=== PATIENT | male | born 1955 | race Caucasian/White ===

== ENCOUNTER 2017-03-17 05:45 | Inpatient (IN) | payer BC, OTHER ==
--- NOTE | 2017-03-16 18:26 | GHP ---
[f rep st] PREOP HISTORY AND PHYSICAL ADMISSION DIAGNOSIS: Adenocarcinoma of the prostate. HISTORY OF PRESENT ILLNESS: This is a 61-year-old gentleman who has had adenocarcinoma of the prostate and is admitted for radical retropubic prostatectomy, bilateral lymph node dissection. He has had a Marana 3 + 3 = 6 , World Health Organization, group 1, prostate cancer. His pathology revealed that he had 2 cores that were 60% Marana 6 in one at the left mid prostate. At the left apex, 70% of a core. There was no reported perineural invasion. He had a PSA value that was 4.0 as of 12/17/2016. His prostate was 16.2 g on ultrasound and he had a PSA density of 0.25. On consultation, we discussed the various options of therapy and those therapy options would be active surveillance/watchful waiting, external beam radiation, IMRT, brachytherapy, CyberKnife, or surgery. At the present time, he has elected to undergo radical retropubic prostatectomy, robotically assisted. He does not have a family history of prostate cancer. PAST MEDICAL HISTORY: Noted for hypertension. PAST SURGERIES: Appendicitis. MEDICATIONS: Lisinopril and vitamin D3. ALLERGIES: No known drug allergies. SOCIAL HISTORY: Nonsmoker. REVIEW OF SYSTEMS: Negative cardiac, respiratory, GI, and endocrine. PHYSICAL EXAMINATION: VITAL SIGNS: In the offices, 136/78 blood pressure, heart rate 94, respirations 16, temp 97.9, and BMI was 28.17. O2 saturation on room air was 95%. Vital signs stable. CHEST: Clear. HEART: Regular rate and rhythm. ABDOMEN: Normal. No organomegaly, rebound, or guarding. EXTREMITIES: Lower extremities were normal. GENITOURINARY: His prostate was initially felt to be normal. The prostate ultrasound exam showed possibly a near-apical lesion at the midline on the sagittal views and the capsule appeared to be intact. PLAN: At the present time, he is admitted for the above procedure. Written and verbal consent were obtained. Bowel prep and preop have been addressed and we have tried to answer all of his questions in an appropriate way. /[id number]/MODL MTDD
--- NOTE | 2017-03-17 06:43 | PDHPUP ---
History & Physical Update H&P update statement: This history and physical update is based on an assessment of the patient which was completed after admission or registration (within 24 hours), but prior to the surgery/procedure. H&P update: H&P reviewed & patient examined, no change in patient's condition since H&P completed
[2017-03-17] MEDS ORDERED: ceFAZolin 2 GM/SWFI 2 GM/20 ML SYR IVP ONE (06:44)
[2017-03-17] MEDS ORDERED: MIDAZOLAM 2 MG/2 ML VIAL IVP ONE (07:00)
--- NOTE | 2017-03-17 07:02 | PDANEPAE ---
ANE Past Medical History - Cardiovascular History Hx Hypertension: Yes Hx Arrhythmias: No Hx Chest Pain: No Hx Coronary Artery / Peripheral Vascular Disease: No Hx CHF / Valvular Disease: No Hx Palpitations: No - Pulmonary History Hx COPD: No Hx Asthma/Reactive Airway Disease: No Hx Recent Upper Respiratory Infection: No Hx Oxygen in Use at Home: No Hx Sleep Apnea: No Sleep Apnea Screening Result - Last Documented: Negative - Neurologic History Hx Cerebrovascular Accident: No Hx Seizures: No Hx Dementia: No - Endocrine History Hx Diabetes: No - Renal History Hx Renal Disorders: No - Liver History Hx Hepatic Disorders: No - Neurological & Psychiatric Hx Hx Neurological and Psychiatric Disorders: No - Cancer History Hx Cancer: Yes Cancer History Comment: prostate ca - Congenital Disorder History Hx Congenital Disorders: No - GI History Hx Gastrointestinal Disorders: Yes Gastrointestinal History Comment: polyps - Other Health History Other Health History: benign proximal positioinal vertigo - Chronic Pain History Chronic Pain: No - Surgical History Prior Surgeries: appendectomy ANE Review of Systems Review of Systems: - Exercise capacity Exercise capacity: >=4 METS METS (RN): 5 METS ANE Patient History - Allergies Allergies/Adverse Reactions: No Known Allergies Allergy (Unverified 03/04/17 16:03) - Home Medications Home Medications: Lisinopril 20 DAILY 03/04/17 [Last Taken 03/17/17 04:00] - NPO status NPO Since - Liquids (Date): 03/16/17 NPO Since - Liquids (Time): 22:00 NPO Since - Solids (Date): 03/15/17 NPO Since - Solids (Time): 19:00 - Anes Hx Anes Hx: no prior problems - Smoking Hx Smoking Status: Never smoked - Family Anes Hx Family Hx Anesthesia Complications: none ANE Labs/Vital Signs - Vital Signs Blood Pressure: 132/71 Heart Rate: 79 Respiratory Rate: 18 O2 Sat (%): 96 Height: 172.72 cm Weight: 83.915 kg ANE Physical Exam - Airway Neck exam: FROM Mallampati Score: Class 1 Mouth exam: normal dental/mouth exam - Pulmonary Pulmonary: no respiratory distress, no rales or rhonchi, clear to auscultation - Cardiovascular Cardiovascular: regular rate and rhythym, no murmur, rub, or gallop - ASA Status ASA Status: II ANE Anesthesia Plan Anesthesia Plan: general endotracheal anesthesia
[2017-03-17] MEDS ORDERED: DEXMEDETOMIDINE/NS 4MCG/ML 50 ML BTL IV ONE (07:13)
[2017-03-17] MEDS ORDERED: PROPOFOL 200 MG/20 ML VIAL ONE (07:14)
[2017-03-17] MEDS ORDERED: LIDOCAINE 2% 5 ML SDV ONE (07:15)
[2017-03-17] MEDS ORDERED: ROCURONIUM 100 MG/10 ML VIAL ONE (07:15)
[2017-03-17] MEDS ORDERED: ONDANSETRON 4 MG/2 ML VIAL ONE (07:15)
[2017-03-17] MEDS ORDERED: DEXAMETHASONE 4 MG/ML VIAL ONE ×2 (07:15)
[2017-03-17] MEDS ORDERED: BUPIVACAINE 0.5% 30 ML SDV ONE (08:03)
[2017-03-17] MEDS ORDERED: GLYCOPYRROLATE 0.2 MG/1 ML VIAL ONE (08:13)
[2017-03-17] MEDS ORDERED: epHEDrine SULFATE 10 MG/ML SYR ONE (08:13)
[2017-03-17] MEDS ORDERED: PHENYLEPHRINE HCL 100 MCG/ML SYR ONE (08:52)
[2017-03-17] MEDS ORDERED: SURGIFLO MATRIX KIT WITH THROMBIN TP ONE (09:57)
[2017-03-17] MEDS ORDERED: SUGAMMADEX SODIUM 200 MG/2 ML VIAL IVP ONE (10:02)
[2017-03-17] MEDS ORDERED: LR 500 ML IV PRN (10:26)
[2017-03-17] MEDS ORDERED: ENALAPRILAT DIHYDRATE 1.25 MG/ML VIAL IVP PRN (10:26)
[2017-03-17] MEDS ORDERED: OXYCODONE/APAP 5/325 TAB PO PRN (10:26)
[2017-03-17] MEDS ORDERED: ACETAMINOPHEN 500 MG TAB PO PRN (10:26)
[2017-03-17] MEDS ORDERED: fentaNYL 100 MCG/2 ML INJ IVP PRN (10:26)
[2017-03-17] MEDS ORDERED: ONDANSETRON 4 MG/2 ML VIAL IVP PRN ×2 (10:26→10:53)
[2017-03-17] MEDS ORDERED: MEPERIDINE 25 MG/ML SYR IVP PRN (10:26)
[2017-03-17] MEDS ORDERED: PROMETHAZINE HCL 25 MG/ML INJ IVP PRN (10:26)
[2017-03-17] MEDS ORDERED: NALOXONE HCL 0.4 MG/ML INJ IVP PRN (10:26)
[2017-03-17] MEDS ORDERED: LABETALOL HCL 5 MG/ML 20 ML MDV IVP PRN (10:26)
--- NOTE | 2017-03-17 10:51 | POSTANESTH ---
Post Anesthetic Evaluation Cardiovascular Status: Normal, Stable Respiratory Status: Normal, Stable, Similar to Pre-op Cond. Level of Consciousness/Mental Status: Can Participate in Eval, Mildly Sleepy, Arousable Pain Control: Adequate, Prn Tx Ordered Nausea/Vomiting Control: Adequate, Prn Tx Ordered Complications Possibly Related to Anesthesia: None Noted
[2017-03-17] MEDS ORDERED: ACETAMINOPHEN 325 MG TAB PO PRN (10:53)
[2017-03-17] MEDS ORDERED: ONDANSETRON DISINTEGRATING 4 MG TAB PO PRN (10:53)
[2017-03-17] MEDS ORDERED: ZOLPIDEM TARTRATE 5 MG TAB PO PRN (10:53)
--- NOTE | 2017-03-17 10:57 | POSTOPPROG ---
Post Op Note Date of Operation: 03/17/17 Surgeon: Obi Santiago Precipitation Equipment Tender: Will Anesthesiologist: Gemini Anesthesia: LMA Pre-op Diagnosis: 185 Procedure: RA-RRP / PLND--dictated Inf/Abcess present in the surg proc area at time of surgery?: No EBL: Minimal Drains: Donavan Finney Specimen(s): prostate, sv, pln
[2017-03-17] MEDS: D5W 1/2 NS W/ 20 KCl/L 1,000 ML IV SCH ×2 (12:28→20:30)
--- NOTE | 2017-03-17 14:41 | GOP ---
[f rep st] OPERATIVE REPORT DATE OF OPERATION: 03/17/2017 SURGEON: Obi Santiago MD BODY BUILDER: Mellisa Solis CFA. ANESTHESIA: General anesthesia. ANESTHESIOLOGIST: Dr. Singletary. PREOPERATIVE DIAGNOSIS: Adenocarcinoma of the prostate. POSTOPERATIVE DIAGNOSIS: Adenocarcinoma of the prostate. PROCEDURE PERFORMED: Robotic-assisted radical prostatectomy and bilateral pelvic lymphadenectomy. Indication, complications associated with the procedure discussed. Written and verbal consent was obtained. He has had consultations and has elected to have this procedure done. FINDINGS: ESTIMATED BLOOD LOSS: Approximately 40 mL. DESCRIPTION OF PROCEDURE: After undergoing general anesthesia, and having appropriate stabilization, an appropriate time-out to confirm all the preoperative information needed, he had a Veress needle placed intra- abdominally and his abdomen inflated to 15 mmHg pressure with CO2 and then a 12 mm camera port was placed in the supraumbilical site and then a 12 mm assistant professor of german port and 3 robotic assist 8 mm ports were placed. The robot was docked. Visualization revealed no intra-abdominal trauma and no other pathology. At that point, I retracted the sigmoid out of the pelvis, identified the seminal vesicles and vas deferens as they went into the prostate, and incised over those. Transected the vas deferens hemostatically. Then dissected out both right and left seminal vesicles. Hemostasis provided with electrocautery and Hem-o-Loks. Then at that point, I entered Denonvilliers fascial space and the rectum from the posterior part of the prostate. Then dropped the bladder down in the standard fashion after dividing the obliterated umbilical arteries and the urachus and then identified the endopelvic fascia on the right and left sides which was incised. The puboprostatic was taken down. Deep dorsal vein was ligated with two #0 Vicryl sutures. Of interest is the biopsy was positive on the left side, but he had a dense inflammatory reaction on the right side that seemed to go a bit beyond the capsule of the prostate and this went from the base all the way to the apex. Initially, I dissected out the left side and tried to make sure there was visually no prostatic capsular tissue left behind. At the end of that dissection, it appeared that the left neurovascular bundle was preserved and there was no suggestion of prostate left and the capsule of the prostate was intact as I went down to the apex. Then on the right side, dissected out. Because of the inflammatory cicatrix that was adjacent, dissected through and ended up going a bit more lateral than I normally would in an attempt to preserve the neurovascular bundle and then, hemostasis was noted and at that point, transected the apex. On dissection, made sure there was soft tissue all the way through the dissection and macroscopically, there was no residual prostate tissue or suggestion of apical prostate capsule remaining. Then, at that point, hemostasis was noted. A Scot stitch was used to approximate Denonvilliers to the rectourethralis area and then the anastomosis was performed with a 4-0 Monocryl. It was bridged with a Berman catheter and then irrigated clear and there was no leakage. Then, at that point, because of the inflammatory reaction and the 60% to 70% involvement of the cores on the biopsy on the left side, I did pelvic lymph node dissection and it was done on the right and left sides in the standard fashion using obturator nerve as the depth of the dissection and the obturator foramen, that dissection carried up to the bifurcation of the external iliac vein and then the mid aspect of the vein was the lateral part of the dissection. Hemostasis was provided with Hem-o-Loks right and left sides and grossly, there were no asymmetric nodular lymph nodes. He did appear to have a lymph node packet equal on both the right and left sides. Hemostasis noted and then at that point, Donavan-Finney drain placed. I used Surgiflo for just local hemostasis in the pelvis and then at that point, the specimen had been placed in the bag and the bag was brought out through the supraumbilical site and that linea alba/rectus incision was closed with 0 Vicryl and then subcutaneous tissue was hemostatic and irrigated. The fascial closure device was used to close the assistant professor of german port site with 0 Vicryl and then the subcutaneous tissue was hemostatic and irrigated. The skin was approximated with a 4-0 Monocryl. Dermabond placed and he will be admitted for postoperative care. Pathology sent for permanent sections. The patient has requested Dr. Singletary to be his anesthesiologist because of familiarity, the expertise the gentleman brings the operating room, and the procedure went well. /[id number]/MODL MTDD
[2017-03-17] MEDS: HYDROmorphONE/DILAUDID 1 MG/ML INJ IVP PRN (23:59)
[2017-03-18] MEDS ORDERED: HYDROmorphONE/DILAUDID 1 MG/ML INJ IVP ONE (02:30)
[2017-03-18] MEDS: OXYCODONE/APAP 5/325 TAB PO PRN ×3 (02:49→19:59)
[2017-03-18] MEDS: D5W 1/2 NS W/ 20 KCl/L 1,000 ML IV SCH ×2 (04:31→12:51)
[2017-03-18 05:01] LABS: ANION GAP 11 mEq/L (8-16); CALCIUM 8.6 mg/dL (8.5-10.4); CARBON DIOXIDE 24 mEq/l (22-31); CHLORIDE 103 mEq/L (97-110); GLOMERULAR FILTRATION RATE > 60; GLUCOSE 117 mg/dL (70-100); POTASSIUM 4.6 mEq/L (3.5-5.2); SODIUM 138 mEq/L (134-144)
[2017-03-18 05:10] LABS: % IMMATURE GRANULYOCYTES 0.5 % (0.0-1.1); ABSOLUTE IMMATURE GRANULOCYTES 0.08 10^3/uL (0.00-0.10); ADD DIFF? NO; ADD MORPH? NO; ADD SCAN? NO; ATYPICAL LYMPHOCYTE FLAG 0 (0-99); FRAGMENT RBC FLAG 0 (0-99); HEMATOCRIT 43.4 % (40.0-51.0); LEFT SHIFT FLG 0 (0-99); LIPEMIA HEMOLYSIS FLAG 90 (0-99); MEAN CELL HEMOGLOBIN 30.9 pg (27.9-34.1); MEAN CELL HEMOGLOBIN CONCENTR. 34.6 g/dL (32.4-36.7); MEAN CELL VOLUME 89.5 fL (81.5-99.8); PLATELET CLUMPS FLAG 30 (0-99); PLATELET COUNT 213 10^3/uL (150-400); RED BLOOD CELL COUNT 4.85 10^6/uL (4.40-6.38); RED CELL DISTRIBUTION WIDTH 11.9 % (11.5-15.2)
--- NOTE | 2017-03-18 09:04 | SOAPPROG ---
SOAP Progress Note Assessment/Plan: Assessment: Post op prostatectomy Plan: Continue to ambulate, consider d/c later today. 03/18/17 09:01 Subjective: feels well Objective: Vital Signs Temp Pulse Resp BP Pulse Ox 36.4 C 66 16 96/67 L 95 03/18/17 07:30 03/18/17 07:30 03/18/17 07:30 03/18/17 07:30 03/18/17 07:30 Laboratory Results 03/18/17 04:15 03/18/17 04:15 03/17/17 03/18/17 03/19/17 05:59 05:59 05:59 Intake Total 3280 Output Total 1575 120 Balance 1705 -120 Physical Exam - Physical Exam General Appearance: alert, no apparent distress Neck: normal inspection Respiratory: normal breath sounds, No respiratory distress Abdomen: No distended, No guarding (incisions healing well. LILLIAN with minimal bloody discharge) Skin: normal color Neuro/Psych: alert ICD10 Worksheet Patient Problems: Problems Problem Status Onset Prostate cancer Acute - ICD10 Problem Qualifiers (1) Prostate cancer
[2017-03-18] MEDS: HYDROmorphONE/DILAUDID 1 MG/ML INJ IVP PRN ×2 (12:44→20:55)
--- NOTE | 2017-03-18 16:32 | ASMTCMCOM ---
CM Note CM Note Notes: Pt admitted for prostatectomy and will DC with no needs. Date Signed: 03/18/2017 04:32 PM Electronically Signed By:Araceli Singh LCSW
[2017-03-19] MEDS: OXYCODONE/APAP 5/325 TAB PO PRN ×4 (00:16→06:31)
[2017-03-19] MEDS: D5W 1/2 NS W/ 20 KCl/L 1,000 ML IV SCH ×3 (04:50→22:57)
[2017-03-19 07:27] VITALS: RESP 16
--- NOTE | 2017-03-19 09:26 | SOAPPROG ---
SOAP Progress Note Assessment/Plan: Assessment: Prostate cancer Acute POD #2, doing well, needs bowel fx improvement, Plan: check LILLIAN creat, consider DC if pt po and flatus improves 03/19/17 10:13 Subjective: improving and a bit "loopy" due to meds Objective: Vital Signs Temp Pulse Resp BP Pulse Ox 36.7 C 93 16 95/59 L 93 03/19/17 07:26 03/19/17 07:26 03/19/17 07:26 03/19/17 07:26 03/19/17 07:26 Laboratory Results 03/18/17 04:15 03/18/17 04:15 03/18/17 03/19/17 03/20/17 05:59 05:59 05:59 Intake Total 3280 681 Output Total 1575 1135 1190 Balance 1705 -092 -1190 Physical Exam - Physical Exam General Appearance: alert Neck: supple Respiratory: No respiratory distress Cardiac/Chest: regular rate, rhythm Abdomen: soft Back: No CVA tenderness Neuro/Psych: alert, oriented x 3 ICD10 Worksheet Patient Problems: Problems Problem Status Onset Prostate cancer Acute
[2017-03-19] MEDS ORDERED: HYDROmorphone HCL/NS/PF 0.4 MG/2 ML SYR IVP PRN (10:05)
[2017-03-19] MEDS ORDERED: SIMETHICONE 80 MG TAB CHEW PO PRN (22:58)
[2017-03-19] MEDS ORDERED: KETOROLAC 30 MG/1 ML SDV IVP ONE (23:00)
[2017-03-20] MEDS: OXYCODONE/APAP 5/325 TAB PO PRN (00:18)
[2017-03-20] MEDS: D5W 1/2 NS W/ 20 KCl/L 1,000 ML IV SCH (06:41)
[2017-03-20 07:47] VITALS: TEMP 97.8
--- NOTE | 2017-03-20 11:00 | SOAPPROG ---
SOAP Progress Note Assessment/Plan: Assessment: Prostate cancer Acute POD #3, doing well, needs bowel fx improvement, Plan: LILLIAN creat 40 and documented as urine drainage, consider DC , continue LILLIAN drain 03/20/17 11:13 Subjective: better Objective: Vital Signs Temp Pulse Resp BP Pulse Ox 36.6 C 61 16 105/66 98 03/20/17 07:44 03/20/17 07:44 03/20/17 07:44 03/20/17 07:44 03/20/17 07:44 Laboratory Results 03/18/17 04:15 03/18/17 04:15 03/19/17 03/20/17 03/21/17 05:59 05:59 05:59 Intake Total 681 3284 Output Total 1135 2050 900 Balance -454 1234 -900 Physical Exam - Physical Exam General Appearance: alert Neck: supple Respiratory: No respiratory distress Cardiac/Chest: regular rate, rhythm Abdomen: soft Extremities: No calf tenderness, No Najma's sign Neuro/Psych: oriented x 3 ICD10 Worksheet Patient Problems: Problems Problem Status Onset Prostate cancer Acute
[2017-03-20 11:32] VITALS: BP 113/72; PULSE 73; O2SAT 93
--- NOTE | 2017-03-20 11:43 | GDS ---
[f rep st] DISCHARGE SUMMARY ADMISSION DIAGNOSIS: Prostate cancer. DISCHARGE DIAGNOSIS: Prostate cancer. PROCEDURE DURING HOSPITALIZATION: Robotic-assisted radical prostatectomy and bilateral pelvic lymph node. HOSPITAL COURSE: The gentleman on the day of admission had the above procedure performed. He is dis charged postop day 3. Delay in discharge was from postop ileus and LILLIAN drainage output. He is discha rged home, for pain will be nonsteroidal anti-inflammatory drugs. He will be instructed on catheter care and LILLIAN care, and then to see me on Tuesday for LILLIAN management and leave the catheter in for a t otal 2 weeks. Postop pathology is pending at the time of discharge. /[id number]/MODL
--- NOTE | 2017-03-20 16:05 | ASDISCHSUM ---
Discharge Information Plan Status:Home with No Needs Medically Cleared to Leave:03/19/2017 Discharge Date:03/20/2017 01:59 PM CM D/C Disposition:Home, Routine, Self-Care ADT D/C Disposition:Home, Routine, Self-Care Projected Discharge Date:03/20/2017 12:00 AM Transportation at D/C:Family Discharge Delay Reason: Follow-Up Date:03/20/2017 12:00 AM Discharge Slot: Final Diagnosis:Prostate CA Placement Information Patient Contact Information Contact Name:LAYA Relationship: Address:[address] City:[place] Alternate Phone: State/Zip Code:[place] [address] Email: Financial Information Financial Class:HMO and PPO Plans Primary Plan Desc:[employer] LAVONNE CORTES Primary Plan Number:[id number] Secondary Plan Desc: Secondary Plan Number: Assessment Information [facility] CM Progress Note CM Note CM Note Notes: Pt admitted for prostatectomy and will DC with no needs. Date Signed: 03/18/2017 04:32 PM Electronically Signed By:Araceli Singh LCSW Case Management Discharge Plan Note Case Management Discharge Discharge Order Complete? Answers: Yes Patient to Obtain Answers: via Family Medications Transportation Arranged Answers: Family/Friends Transport will Pick (Date 03/20/2017 12:00 AM & Time) Family Notified Answers: Yes Notes: Family to transport Discharge Comments Notes: Patient has been discharged home. No HC needs. Date Signed: 03/20/2017 04:05 PM Electronically Signed By:Alicia Simon LCSW Intervention Information
== END 2017-03-20 13:59 | disposition home or self-care (01) | DRG 707 ==
LOC: F3E 05:45 → F1N 12:09
PROVIDERS: ADMIT Specialist; ATTEND Specialist
DX: C61 Malignant neoplasm of prostate (principal); K91.89 Other postprocedural complications and disorders of digestive system; K56.0 Paralytic ileus; I10 Essential (primary) hypertension
CPT/HCPCS: 97110-GP; 97116-GP; 97161-GP; J0690; J1100; J1170; J1885; J2250; J2370; J2405; J2704